=== PATIENT | male | born 1945 | race Asian ===

== ENCOUNTER → 2020-08-02 | Outpatient (CLI) | payer MEDICARE | END | disposition home or self-care (01) | LOC: RADPV 09:58 | PROVIDERS: ATTEND Physical Medicine & Rehabilitation Spinal Cord Injury Medicine | DX: M46.06 Spinal enthesopathy, lumbar region (principal); M47.26 Other spondylosis with radiculopathy, lumbar region; M17.11 Unilateral primary osteoarthritis, right knee; K80.20 Calculus of gallbladder without cholecystitis without obstruction; I70.8 Atherosclerosis of other arteries | CPT/HCPCS: 72100; 73562-TC ==

== ENCOUNTER 2024-03-13 20:16 | Inpatient (IN) | payer MEDICARE, OTHER ==
[~2024-03-13] VITALS: Ht 172.7 cm; Wt 69.7 kg
[2024-03-13 20:50] VITALS: PULSE 94; RESP 20; O2SAT 98
[2024-03-13 21:00] LABS: BASOPHILS % (AUTO) 0.6 % (0.0-2.0); EOSINOPHILS % (AUTO) 0.2 % (1.0-6.0); HEMOGLOBIN 14.4 g/dL (13.5-17.5); LYMPHOCYTES # (AUTO) 3.8 K/uL (1.0-4.8); LYMPHOCYTES % (AUTO) 29.5 % (22.0-44.0); MEAN CORPUSCULAR HEMOGLOBIN 29.1 pg (26.0-34.0); MEAN CORPUSCULAR HGB CONC 30.6 G/dL (31.0-37.0); MEAN CORPUSCULAR VOLUME 95 fL (80-100); MONOCYTES # (AUTO) 0.7 K/uL (0.1-1.0); NEUTROPHILS # (AUTO) 8.4 K/uL (1.8-7.7); NEUTROPHILS % (AUTO) 64.7 % (40.0-70.0); PLATELET COUNT (AUTO) 146 K/uL (150-450); RED BLOOD CELL COUNT(AUTO) 4.94 MIL/uL (4.50-5.90); RED CELL DISTRIBUTION WIDTH 18.6 % (11.5-14.5)
[2024-03-13 21:12] LABS: INR 1.1 (0.9-1.1); PROTHROMBIN TIME 11.4 SEC (9.4-11.6)
[2024-03-13 21:13] LABS: ANION GAP 8 mmol/L (8-16); CALCIUM, TOTAL 10.1 mg/dL (8.8-10.5); CARBON DIOXIDE 32 mmol/L (22-29); CHLORIDE 104 mmol/L (98-107); CREATININE 1.04 mg/dL (0.60-1.30); GLOMERULAR FILTR. RATE CALC > 60 mL/min (>60); GLUCOSE,RANDOM 264 mg/dL (70-110); POTASSIUM 4.4 mmol/L (3.5-5.1); SODIUM SERUM 144 mmol/L (136-145); UREA NITROGEN, BLOOD 23 mg/dL (7-18)
[2024-03-13 21:24] LABS: ABG BASE EXCESS -1.4 mmol/L (-2.0-3.0); ABG CARBOXYHEMOGLOBIN 0.8 % (0.0-1.5); ABG HCO3 21.1 mmol/L (22.0-26.0); ABG METHEMOGLOBIN 0.7 % (0.0-1.5); ABG OXYGEN CONTENT 22.6 mL/dL (15.0-23.0); ABG OXYGEN SATURATION 99.7 % (95.0-98.0); ABG OXYHEMOGLOBIN 98.2 % (94.0-100.0); ABG TOTAL HEMOGLOBIN 15.4 G/dL (12.0-18.0); PO2, ARTERIAL BG 496.7 mmHg (71.0-79.0); SOURCE, BLOOD GAS ARTERIAL; TEMPERATURE, FAHRENHEIT, BG 99.4 FAHREN (96.0-98.6)
[2024-03-13 21:26] LABS: LACTIC ACID 9.3 mmol/L (0.4-2.0); TROPONIN I-HIGH SENSITIVITY 80 ng/L (<76)
[2024-03-13 21:27] LABS: B-TYPE NATRIURETIC PEPTIDE 327 pg/mL (0-100)
[2024-03-13 21:28] LABS: ALANINE AMINOTRANSFERASE 113 U/L (12-78); ALBUMIN 2.1 g/dL (3.4-5.0); ALKALINE PHOSPHATASE 77 U/L (46-116); ASPARTATE AMINOTRANSFERASE 87 U/L (15-37); BILIRUBIN,TOTAL 0.4 mg/dL (0.1-1.0); TOTAL PROTEIN, SERUM 5.4 g/dL (6.4-8.2)
[2024-03-13] MEDS: 0.9% SODIUM CHLORIDE 10 ML SYRINGE IVP PRN (21:30)
[2024-03-13] MEDS: SODIUM CHLORIDE 0.9% 1,800 ML IV ONE (21:30)
[2024-03-13 21:33] LABS: ABG PH 7.104 (7.35-7.450)
[2024-03-13 21:34] LABS: ABG A-A DIFF O2 123.1 mmHg (10-20.0); ABG PCO2 92 mmHg (35-45); ALLEN TEST, BLOOD GAS Positive; O2 DEVICE,BLOOD GAS VENT (ROOM AIR); PEEP,BG 5 cm H2O; SITE, BLOOD GAS LFT RADIAL; VT, ABG 400 ml
[2024-03-13] MEDS: NOREPINEPHRINE 8 MG/0.9 % NACL 250 ML IV PRN (21:39)
[2024-03-13] MEDS: PIPERACILLIN/TAZO 3.375 GM/D5W 50 ML IV SCH (21:43)
[2024-03-13] MEDS: PHENYLEPHRINE 200 MG/D5%-WATER 250 ML IV PRN (22:00)
[2024-03-13] MEDS ORDERED: 0.9% SODIUM CHLORIDE 5 ML NEB SOLUTION NEB ONE (22:22)
[2024-03-13] MEDS: ALBUTEROL SULFATE 2.5 MG/0.5 ML NEB SOLUTION NEB ONE (22:33)
[2024-03-13 22:35] VITALS: PULSE 56; RESP 28; O2SAT 98
[2024-03-13 22:40] VITALS: PULSE 59; RESP 28; O2SAT 100
[2024-03-13] MEDS: MethylPREDNISolone SOD SUCC 125 MG/2 ML VIAL IVP ONE (22:42)
[2024-03-13 22:48] LABS: COVID AG,FIA SOURCE NASAL SWAB
[2024-03-13 22:50] VITALS: PULSE 51; RESP 28; O2SAT 100
[2024-03-13] MEDS ORDERED: METO-408 PO (22:51)
[2024-03-13] MEDS ORDERED: FLUT16SP NASAL (22:51)
[2024-03-13] MEDS ORDERED: IPRA3AMP24 NEB (22:51)
[2024-03-13] MEDS ORDERED: APIX5TAB PO (22:51)
[2024-03-13] MEDS ORDERED: VIBE75TA PO (22:51)
[2024-03-13] MEDS ORDERED: CRAN250C PO (22:51)
[2024-03-13] MEDS ORDERED: PANT-31 PO (22:51)
[2024-03-13] MEDS ORDERED: NYST15PO3 TP (22:51)
[2024-03-13] MEDS ORDERED: FLUT1BLS3 IH (22:51)
[2024-03-13] MEDS ORDERED: HYDR28.35 TP (22:51)
[2024-03-13] MEDS ORDERED: METF-910 PO (22:51)
[2024-03-13] MEDS ORDERED: SILD20TA PO (22:51)
[2024-03-13] MEDS ORDERED: PRED-729 PO (22:51)
[2024-03-13 23:09] LABS: SARS-COV2 (COVID) ANTIGEN,FIA Negative (Negative)
[2024-03-13 23:11] LABS: INFLUENZA TYPE A NEGATIVE FOR TYPE A (NEGATIVE); INFLUENZA TYPE B NEGATIVE FOR TYPE B (NEGATIVE)
[2024-03-13] MEDS ORDERED: PIPERACILLIN/TAZO 3.375 GM/D5W 50 ML IV SCH (23:15)
[2024-03-13 23:36] LABS: ABG CARBOXYHEMOGLOBIN 0.8 % (0.0-1.5); ABG HCO3 25.7 mmol/L (22.0-26.0); ABG METHEMOGLOBIN 0.6 % (0.0-1.5); ABG OXYGEN CONTENT 22.8 mL/dL (15.0-23.0); ABG OXYGEN SATURATION 98.8 % (95.0-98.0); ABG OXYHEMOGLOBIN 97.4 % (94.0-100.0); ABG PH 7.249 (7.35-7.450); ABG TOTAL HEMOGLOBIN 16.5 G/dL (12.0-18.0); SOURCE, BLOOD GAS ARTERIAL; TEMPERATURE, FAHRENHEIT, BG 98.5 FAHREN (96.0-98.6)
[2024-03-13 23:39] LABS: ABG A-A DIFF O2 216.7 mmHg (10-20.0); ABG PCO2 73 mmHg (35-45); ALLEN TEST, BLOOD GAS Positive; O2 DEVICE,BLOOD GAS VENT (ROOM AIR); PEEP,BG 5 cm H2O; SITE, BLOOD GAS LFT RADIAL; VT, ABG 450 ml
[2024-03-13] MEDS: PROPOFOL 1000 MG/ISO-OSM 100 ML IV PRN (23:39)
[2024-03-14] VITALS (14 sets, daily range): BP systolic 105–188; BP diastolic 52–90; PULSE 43–81; RESP 28; TEMP 87.7–100.1; O2SAT 94–100
[2024-03-14 00:34] LABS: APPEARANCE,URINE HAZY (CLEAR); BILIRUBIN,URINE NEGATIVE (NEGATIVE); COLOR,URINE YELLOW (YELLOW); GLUCOSE, URINE (UA) 70-100 mg/dL (NEGATIVE); KETONES,URINE NEGATIVE (NEGATIVE); LEUKOCYTE ESTERASE ,URINE NEGATIVE (NEGATIVE); NITRATE,URINE NEGATIVE (NEGATIVE); OCCULT BLOOD,URINE SMALL (NEGATIVE); PH,URINE 6.5 (5.0-8.0); PROTEIN,URINE 300-600,SEE CONFIRM mg/dL (NEGATIVE); UROBILINOGEN,URINE <=1.0 mg/dL (<=1.0)
[2024-03-14 01:15] LABS: SULFOSALICYLIC ACID,URINE 3+ (Negative)
[2024-03-14 01:16] LABS: AMORPHOUS SEDIMENT,UR Moderate /LPF (None Seen); BACTERIA,URINE Few /HPF (None Seen); SQUAMOUS EPITHELIAL CELL,UR None Seen /LPF (None Seen)
[2024-03-14 04:01] LABS: GLUCOMETER DEV NAME(LOC) ICU.S6; GLUCOSE,POINT OF CARE 203 MG/DL (70-110)
[2024-03-14 04:50] LABS: BASOPHILS % (AUTO) 0.3 % (0.0-2.0); EOSINOPHILS % (AUTO) 0 % (1.0-6.0); HEMATOCRIT 47.8 % (41-53); HEMOGLOBIN 14.8 g/dL (13.5-17.5); LYMPHOCYTES # (AUTO) 0.8 K/uL (1.0-4.8); LYMPHOCYTES % (AUTO) 4.1 % (22.0-44.0); MEAN CORPUSCULAR HEMOGLOBIN 28.8 pg (26.0-34.0); MEAN CORPUSCULAR HGB CONC 30.9 G/dL (31.0-37.0); MEAN CORPUSCULAR VOLUME 93 fL (80-100); MONOCYTES # (AUTO) 0.9 K/uL (0.1-1.0); MONOCYTES % (AUTO) 4.8 % (2.0-9.0); NEUTROPHILS # (AUTO) 17.3 K/uL (1.8-7.7); PLATELET COUNT (AUTO) 173 K/uL (150-450); RED BLOOD CELL COUNT(AUTO) 5.13 MIL/uL (4.50-5.90)
[2024-03-14 04:51] LABS: NEUTROPHILS % (AUTO) 90.8 % (40.0-70.0)
[2024-03-14 05:01] LABS: CALCIUM, TOTAL 9.4 mg/dL (8.8-10.5); CREATININE 1.28 mg/dL (0.60-1.30); POTASSIUM 5.7 mmol/L (3.5-5.1)
[2024-03-14 05:06] LABS: ALBUMIN 2.5 g/dL (3.4-5.0); BILIRUBIN,TOTAL 0.9 mg/dL (0.1-1.0); MAGNESIUM 2.2 mg/dL (1.80-2.40); PHOSPHORUS 6.6 mg/dL (2.5-4.9); TOTAL PROTEIN, SERUM 6.2 g/dL (6.4-8.2)
[2024-03-14 05:08] LABS: TROPONIN I-HIGH SENSITIVITY 754 ng/L (<76)
[2024-03-14] MEDS ORDERED: SODIUM CHLORIDE 0.9% 250 ML IV ONE (05:33)
[2024-03-14] MEDS ORDERED: MIDAZOLAM HCL 100 MG in SODIUM CHLORIDE 0.9% 180 ML IV PRN (06:30)
[2024-03-14] MEDS: FentaNYL CIT 1000MCG/0.9% NACL 100 ML IV PRN (06:35)
[2024-03-14] MEDS ORDERED: DOPamine 400MG/D5W[STANDARD] 250 ML IV ONE (08:13)
[2024-03-14] MEDS: DOPamine 400MG/D5W[STANDARD] 250 ML IV PRN (08:15)
[2024-03-14 08:32] LABS: ABG CARBOXYHEMOGLOBIN 0.8 % (0.0-1.5); ABG HCO3 26.4 mmol/L (22.0-26.0); ABG METHEMOGLOBIN 0.1 % (0.0-1.5); ABG OXYGEN SATURATION 99.9 % (95.0-98.0); ABG PCO2 56 mmHg (35-45); ABG PH 7.342 (7.35-7.450); ABG TOTAL HEMOGLOBIN 16.8 G/dL (12.0-18.0); ALLEN TEST, BLOOD GAS Positive; O2 DEVICE,BLOOD GAS VENTILATOR (ROOM AIR); PEEP,BG 5 cm H2O; PO2, ARTERIAL BG 287.8 mmHg (71.0-79.0); SITE, BLOOD GAS LFT RADIAL; SOURCE, BLOOD GAS ARTERIAL; TEMPERATURE, FAHRENHEIT, BG 96.1 FAHREN (96.0-98.6); VT, ABG 450 ml
[2024-03-14] MEDS ORDERED: HEPARIN SODIUM,PORCINE 5,000 UNITS/ML VIAL IVP PRN ×2 (09:45)
[2024-03-14] MEDS: HEPARIN SODIUM,PORCINE 1,000 UNITS/ML VIAL IVP ONE ×2 (11:28→11:30)
[2024-03-14 11:32] LABS: BASOPHILS % (AUTO) 0.6 % (0.0-2.0); EOSINOPHILS % (AUTO) 0 % (1.0-6.0); HEMATOCRIT 49.8 % (41-53); HEMOGLOBIN 15.8 g/dL (13.5-17.5); LYMPHOCYTES # (AUTO) 0.4 K/uL (1.0-4.8); LYMPHOCYTES % (AUTO) 2.3 % (22.0-44.0); MEAN CORPUSCULAR HEMOGLOBIN 29.2 pg (26.0-34.0); MEAN CORPUSCULAR HGB CONC 31.8 G/dL (31.0-37.0); MEAN CORPUSCULAR VOLUME 92 fL (80-100); MONOCYTES # (AUTO) 0.8 K/uL (0.1-1.0); MONOCYTES % (AUTO) 4.5 % (2.0-9.0); NEUTROPHILS # (AUTO) 16.9 K/uL (1.8-7.7); PLATELET COUNT (AUTO) 147 K/uL (150-450); RED BLOOD CELL COUNT(AUTO) 5.42 MIL/uL (4.50-5.90); RED CELL DISTRIBUTION WIDTH 17.6 % (11.5-14.5); WHITE BLOOD COUNT (AUTO) 18.3 K/uL (4.5-11.0)
[2024-03-14 11:35] LABS: NEUTROPHILS % (AUTO) 92.6 % (40.0-70.0)
[2024-03-14 11:46] LABS: PROTHROMBIN TIME 10.9 SEC (9.4-11.6)
[2024-03-14 13:07] LABS: CALCIUM, TOTAL 9.4 mg/dL (8.8-10.5); CREATININE 1.29 mg/dL (0.60-1.30); POTASSIUM 5.1 mmol/L (3.5-5.1)
[2024-03-14] MEDS: SODIUM CHLORIDE 0.9% IV PRN (13:11)
[2024-03-14] MEDS: ISOPROTERENOL HCL IV PRN (13:11)
[2024-03-14] MEDS: HEPARIN SODIUM,PORCINE 5,000 UNITS/ML VIAL IVP ONE (13:35)
[2024-03-14] MEDS: HEPARIN SODIUM 25000 UNITS/D5W 250 ML IV PRN (13:38)
[2024-03-14 15:42] LABS: ABG BASE EXCESS 4.5 mmol/L (-2.0-3.0); ABG CARBOXYHEMOGLOBIN 0.9 % (0.0-1.5); ABG HCO3 27.9 mmol/L (22.0-26.0); ABG METHEMOGLOBIN 0.5 % (0.0-1.5); ABG OXYGEN CONTENT 21.9 mL/dL (15.0-23.0); ABG OXYHEMOGLOBIN 97.6 % (94.0-100.0); ABG PCO2 38 mmHg (35-45); ABG PH 7.483 (7.35-7.450); ABG TOTAL HEMOGLOBIN 15.9 G/dL (12.0-18.0); O2 DEVICE,BLOOD GAS VENTILATOR (ROOM AIR); SITE, BLOOD GAS ARTERIAL LINE; SOURCE, BLOOD GAS ARTERIAL; TEMPERATURE, FAHRENHEIT, BG 92.1 FAHREN (96.0-98.6)
[2024-03-14 15:43] LABS: PEEP,BG 5 cm H2O; VT, ABG 450 ml
[2024-03-14 17:52] LABS: APPEARANCE,URINE HAZY (CLEAR); BILIRUBIN,URINE NEGATIVE (NEGATIVE); COLOR,URINE LIGHT YELLOW (YELLOW); GLUCOSE, URINE (UA) >=1000 mg/dL (NEGATIVE); KETONES,URINE NEGATIVE (NEGATIVE); LEUKOCYTE ESTERASE ,URINE NEGATIVE (NEGATIVE); NITRATE,URINE NEGATIVE (NEGATIVE); OCCULT BLOOD,URINE NEGATIVE (NEGATIVE); PROTEIN,URINE TRACE mg/dL (NEGATIVE); SPECIFIC GRAVITIY, URINE 1.023 (1.003-1.030); UROBILINOGEN,URINE <=1.0 mg/dL (<=1.0)
[2024-03-14 17:58] LABS: CALCIUM, TOTAL 8.9 mg/dL (8.8-10.5); CREATININE 1.36 mg/dL (0.60-1.30); MAGNESIUM 1.9 mg/dL (1.80-2.40); PHOSPHORUS 4.6 mg/dL (2.5-4.9); POTASSIUM 3.8 mmol/L (3.5-5.1)
[2024-03-14 18:06] LABS: CREATININE,URINE RANDOM 52.2 mg/dL (30.0-125.0); UREA NITROGEN,URINE RANDOM 760 mg/dL (350-1000)
[2024-03-14 18:19] LABS: SODIUM,URINE RANDOM 59 mmol/l (20-110)
[2024-03-14 18:44] LABS: RBC,URINE None Seen /HPF (0-2)
[2024-03-14 18:45] LABS: BACTERIA,URINE None Seen /HPF (None Seen); URIC ACID CRYSTALS,URINE Moderate /LPF (None Seen); WBC,URINE 0-2 /HPF (0-5)
[2024-03-14] MEDS: PANTOPRAZOLE SODIUM 40 MG/VIAL IVP SCH (20:40)
[2024-03-14 20:48] LABS: ABG BASE EXCESS 1.6 mmol/L (-2.0-3.0); ABG CARBOXYHEMOGLOBIN 0.7 % (0.0-1.5); ABG METHEMOGLOBIN 0.2 % (0.0-1.5); ABG OXYGEN CONTENT 21.4 mL/dL (15.0-23.0); ABG OXYGEN SATURATION 95.5 % (95.0-98.0); ABG OXYHEMOGLOBIN 94.6 % (94.0-100.0); ABG PCO2 58 mmHg (35-45); ABG PH 7.295 (7.35-7.450); ABG TOTAL HEMOGLOBIN 16.1 G/dL (12.0-18.0); SOURCE, BLOOD GAS ARTERIAL; TEMPERATURE, FAHRENHEIT, BG 92.3 FAHREN (96.0-98.6)
[2024-03-14 20:49] LABS: O2 DEVICE,BLOOD GAS VENTILATOR (ROOM AIR); PEEP,BG 5 cm H2O; SITE, BLOOD GAS ARTERIAL LINE; VT, ABG 450 ml
[2024-03-14] MEDS ORDERED: DEXTROSE 50%-WATER 25 GM/50 ML SYRINGE IVP PRN (23:45)
[2024-03-14 23:46] LABS: GLUCOMETER DEV NAME(LOC) ICU.S6; GLUCOSE,POINT OF CARE 205 MG/DL (70-110)
[2024-03-14 23:50] LABS: CALCIUM, TOTAL 8.7 mg/dL (8.8-10.5); CREATININE 1.19 mg/dL (0.60-1.30); MAGNESIUM 1.8 mg/dL (1.80-2.40); PHOSPHORUS 5.4 mg/dL (2.5-4.9); POTASSIUM 3.9 mmol/L (3.5-5.1)
[2024-03-15] VITALS (16 sets, daily range): BP systolic 108–126; BP diastolic 47–81; PULSE 71–106; RESP 19–28; TEMP 90.5–100.4; O2SAT 89–100
[2024-03-15] MEDS: INSULIN LISPRO 100 UNITS/ML SQ PRN (00:30)
[2024-03-15 05:26] LABS: GLUCOMETER DEV NAME(LOC) ICUN.5; GLUCOSE,POINT OF CARE 183 MG/DL (70-110)
[2024-03-15 06:13] LABS: ANION GAP 5 mmol/L (8-16); CALCIUM, TOTAL 8.7 mg/dL (8.8-10.5); CARBON DIOXIDE 32 mmol/L (22-29); CHLORIDE 101 mmol/L (98-107); CREATININE 0.99 mg/dL (0.60-1.30); GLOMERULAR FILTR. RATE CALC > 60 mL/min (>60); GLUCOSE,RANDOM 177 mg/dL (70-110); PHOSPHORUS 3.8 mg/dL (2.5-4.9); POTASSIUM 3.9 mmol/L (3.5-5.1); SODIUM SERUM 138 mmol/L (136-145); UREA NITROGEN, BLOOD 35 mg/dL (7-18)
[2024-03-15] MEDS ORDERED: ZOLPIDEM TARTRATE 5 MG TABLET PO PRN (06:15)
[2024-03-15] MEDS ORDERED: HYDROCODONE/ACETAMINOPHEN 5-325 MG TABLET PO PRN (06:15)
[2024-03-15] MEDS ORDERED: ALBUTEROL SULFATE 2.5 MG/0.5 ML NEB SOLUTION NEB PRN (06:15)
[2024-03-15] MEDS ORDERED: IPRATROPIUM BROMIDE 0.5 MG/2.5 ML NEB SOLUTION NEB PRN (06:15)
[2024-03-15] MEDS ORDERED: BISACODYL 10 MG RECTAL RECTAL SUPPOSITORY PR PRN (06:15)
[2024-03-15] MEDS ORDERED: MAGNESIUM HYDROXIDE SUSPENSION 30 ML UDCUP PO PRN (06:15)
[2024-03-15] MEDS ORDERED: ONDANSETRON HCL 4 MG/2 ML VIAL IVP PRN (06:15)
[2024-03-15] MEDS ORDERED: MORPHINE SULFATE 2 MG/ML SYRINGE IVP PRN (06:15)
[2024-03-15] MEDS ORDERED: DEXTROSE 50%-WATER 25 GM/50 ML SYRINGE IVP PRN (06:45)
[2024-03-15] MEDS: VANCOMYCIN 1.25 GM/WATER(PEG) 250 ML IV ONE (08:00)
[2024-03-15] MEDS: MethylPREDNISolone SOD SUCC 125 MG/2 ML VIAL IVP SCH (08:00)
[2024-03-15 08:11] LABS: ANION GAP 5 mmol/L (8-16); CALCIUM, TOTAL 8.6 mg/dL (8.8-10.5); CARBON DIOXIDE 32 mmol/L (22-29); CHLORIDE 100 mmol/L (98-107); CREATININE 1.03 mg/dL (0.60-1.30); GLOMERULAR FILTR. RATE CALC > 60 mL/min (>60); GLUCOSE,RANDOM 160 mg/dL (70-110); POTASSIUM 3.9 mmol/L (3.5-5.1); SODIUM SERUM 137 mmol/L (136-145); UREA NITROGEN, BLOOD 36 mg/dL (7-18)
[2024-03-15 08:13] LABS: BASOPHILS % (AUTO) 0.1 % (0.0-2.0); EOSINOPHILS % (AUTO) 0 % (1.0-6.0); HEMATOCRIT 43.2 % (41-53); HEMOGLOBIN 13.9 g/dL (13.5-17.5); LYMPHOCYTES # (AUTO) 0.5 K/uL (1.0-4.8); LYMPHOCYTES % (AUTO) 4.4 % (22.0-44.0); MEAN CORPUSCULAR HGB CONC 32.2 G/dL (31.0-37.0); MEAN CORPUSCULAR VOLUME 90 fL (80-100); MONOCYTES # (AUTO) 0.5 K/uL (0.1-1.0); MONOCYTES % (AUTO) 4.5 % (2.0-9.0); NEUTROPHILS # (AUTO) 10.3 K/uL (1.8-7.7); PLATELET COUNT (AUTO) 145 K/uL (150-450); RED CELL DISTRIBUTION WIDTH 17.1 % (11.5-14.5); WHITE BLOOD COUNT (AUTO) 11.3 K/uL (4.5-11.0)
[2024-03-15 08:14] LABS: AMYLASE 468 U/L (25-115); CHOL/HDL RATIO 2.1 (4.2-7.3); LIPASE 59 U/L (16-77)
[2024-03-15 08:16] LABS: ALANINE AMINOTRANSFERASE 154 U/L (12-78); ALBUMIN 2.2 g/dL (3.4-5.0); ALKALINE PHOSPHATASE 78 U/L (46-116); ASPARTATE AMINOTRANSFERASE 51 U/L (15-37); TOTAL PROTEIN, SERUM 5.7 g/dL (6.4-8.2)
[2024-03-15 08:59] LABS: PHOSPHORUS 3.6 mg/dL (2.5-4.9)
[2024-03-15] MEDS ORDERED: PANTOPRAZOLE SODIUM 40 MG DR TABLET PO SCH (09:00)
[2024-03-15 10:05] LABS: ABG BASE EXCESS 5.1 mmol/L (-2.0-3.0); ABG CARBOXYHEMOGLOBIN 0.6 % (0.0-1.5); ABG HCO3 28.9 mmol/L (22.0-26.0); ABG METHEMOGLOBIN 0.1 % (0.0-1.5); ABG OXYGEN CONTENT 19.7 mL/dL (15.0-23.0); ABG OXYGEN SATURATION 98.6 % (95.0-98.0); ABG OXYHEMOGLOBIN 97.9 % (94.0-100.0); ABG PCO2 40 mmHg (35-45); ABG PH 7.473 (7.35-7.450); ABG TOTAL HEMOGLOBIN 14.2 G/dL (12.0-18.0); O2 DEVICE,BLOOD GAS VENTILATOR (ROOM AIR); PEEP,BG 5 cm H2O; PO2, ARTERIAL BG 119.1 mmHg (71.0-79.0); SITE, BLOOD GAS ARTERIAL LINE; SOURCE, BLOOD GAS ARTERIAL; TEMPERATURE, FAHRENHEIT, BG 99.7 FAHREN (96.0-98.6); VT, ABG 450 ml
[2024-03-15] MEDS: ACETAMINOPHEN 325 MG TABLET PO PRN (10:28)
[2024-03-15 11:49] LABS: ANION GAP 3 mmol/L (8-16); CALCIUM, TOTAL 8.3 mg/dL (8.8-10.5); CARBON DIOXIDE 31 mmol/L (22-29); CHLORIDE 102 mmol/L (98-107); CREATININE 1.12 mg/dL (0.60-1.30); GLOMERULAR FILTR. RATE CALC > 60 mL/min (>60); GLUCOSE,RANDOM 132 mg/dL (70-110); PHOSPHORUS 4.1 mg/dL (2.5-4.9); POTASSIUM 4.7 mmol/L (3.5-5.1); SODIUM SERUM 136 mmol/L (136-145); UREA NITROGEN, BLOOD 37 mg/dL (7-18)
[2024-03-15 14:37] LABS: BASOPHILS % (AUTO) 0.3 % (0.0-2.0); EOSINOPHILS % (AUTO) 0.1 % (1.0-6.0); HEMATOCRIT 41.2 % (41-53); HEMOGLOBIN 13.2 g/dL (13.5-17.5); LYMPHOCYTES # (AUTO) 0.6 K/uL (1.0-4.8); LYMPHOCYTES % (AUTO) 5.3 % (22.0-44.0); MEAN CORPUSCULAR HEMOGLOBIN 28.6 pg (26.0-34.0); MEAN CORPUSCULAR VOLUME 89 fL (80-100); MONOCYTES # (AUTO) 0.6 K/uL (0.1-1.0); MONOCYTES % (AUTO) 4.8 % (2.0-9.0); NEUTROPHILS # (AUTO) 10.4 K/uL (1.8-7.7); PLATELET COUNT (AUTO) 141 K/uL (150-450); RED BLOOD CELL COUNT(AUTO) 4.62 MIL/uL (4.50-5.90); RED CELL DISTRIBUTION WIDTH 17.5 % (11.5-14.5); WHITE BLOOD COUNT (AUTO) 11.6 K/uL (4.5-11.0)
[2024-03-15 14:39] LABS: NEUTROPHILS % (AUTO) 89.5 % (40.0-70.0)
[2024-03-15 14:53] LABS: TROPONIN I-HIGH SENSITIVITY 318 ng/L (<76)
[2024-03-15] MEDS ORDERED: ROSU10TA72 PO (16:58)
[2024-03-15] MEDS ORDERED: ALBU18HF12 IH (16:58)
[2024-03-15] MEDS ORDERED: KETO120S13 TP (16:58)
[2024-03-15 17:25] LABS: GLUCOSE,POINT OF CARE 112 MG/DL (70-110)
[2024-03-15 17:26] LABS: GLUCOMETER DEV NAME(LOC) ICUN.5; GLUCOSE,POINT OF CARE 146 MG/DL (70-110)
[2024-03-15 17:26] LABS: GLUCOMETER DEV NAME(LOC) ICUN.5
[2024-03-15] MEDS: NOREPINEPHRINE 8 MG/0.9 % NACL 250 ML IV PRN (17:28)
[2024-03-15] MEDS: VANCOMYCIN 750 MG/WATER(PEG) 150 ML IV SCH (21:10)
[2024-03-15 21:40] LABS: GLUCOMETER DEV NAME(LOC) ICUN.5; GLUCOSE,POINT OF CARE 145 MG/DL (70-110)
[2024-03-16] VITALS (14 sets, daily range): BP systolic 105–126; BP diastolic 47–85; PULSE 67–94; RESP 19–28; TEMP 99.1–100; O2SAT 95–100
[2024-03-16 06:23] LABS: EOSINOPHILS % (AUTO) 0 % (1.0-6.0); HEMATOCRIT 35.7 % (41-53); HEMOGLOBIN 11.5 g/dL (13.5-17.5); LYMPHOCYTES # (AUTO) 0.9 K/uL (1.0-4.8); LYMPHOCYTES % (AUTO) 7.2 % (22.0-44.0); MEAN CORPUSCULAR HEMOGLOBIN 28.9 pg (26.0-34.0); MEAN CORPUSCULAR HGB CONC 32.2 G/dL (31.0-37.0); MEAN CORPUSCULAR VOLUME 90 fL (80-100); MONOCYTES # (AUTO) 0.4 K/uL (0.1-1.0); MONOCYTES % (AUTO) 3.6 % (2.0-9.0); NEUTROPHILS # (AUTO) 10.9 K/uL (1.8-7.7); PLATELET COUNT (AUTO) 129 K/uL (150-450); RED BLOOD CELL COUNT(AUTO) 3.98 MIL/uL (4.50-5.90); RED CELL DISTRIBUTION WIDTH 17.8 % (11.5-14.5); WHITE BLOOD COUNT (AUTO) 12.2 K/uL (4.5-11.0)
[2024-03-16 06:24] LABS: NEUTROPHILS % (AUTO) 89.2 % (40.0-70.0)
[2024-03-16 06:28] LABS: CALCIUM, TOTAL 8.7 mg/dL (8.8-10.5); CREATININE 1.76 mg/dL (0.60-1.30); MAGNESIUM 1.9 mg/dL (1.80-2.40); PHOSPHORUS 5.5 mg/dL (2.5-4.9); POTASSIUM 4.1 mmol/L (3.5-5.1)
[2024-03-16 06:33] LABS: TROPONIN I-HIGH SENSITIVITY 198 ng/L (<76)
[2024-03-16 07:26] LABS: GLUCOMETER DEV NAME(LOC) ICU.S6; GLUCOSE,POINT OF CARE 187 MG/DL (70-110)
[2024-03-16] MEDS: INSULIN LISPRO 100 UNITS/ML SQ PRN (07:28)
[2024-03-16] MEDS: HEPARIN SODIUM,PORCINE 5,000 UNITS/ML VIAL SQ SCH (09:15)
[2024-03-16 12:01] LABS: GLUCOMETER DEV NAME(LOC) ICUN.5; GLUCOSE,POINT OF CARE 189 MG/DL (70-110)
[2024-03-16 17:30] LABS: GLUCOMETER DEV NAME(LOC) ICUN.5; GLUCOSE,POINT OF CARE 179 MG/DL (70-110)
[2024-03-16] MEDS ORDERED: BUDESONIDE 0.5 MG/2 ML NEB SOLUTION NEB SCH (21:00)
[2024-03-17] VITALS (10 sets, daily range): BP systolic 88–134; BP diastolic 52–80; PULSE 58–103; RESP 28; TEMP 98.2–99; O2SAT 98–100
[2024-03-17 00:07] LABS: GLUCOMETER DEV NAME(LOC) ICUN.5; GLUCOSE,POINT OF CARE 175 MG/DL (70-110)
[2024-03-17 06:18] LABS: CALCIUM, TOTAL 8.7 mg/dL (8.8-10.5); CREATININE 1.29 mg/dL (0.60-1.30); MAGNESIUM 2.1 mg/dL (1.80-2.40); PHOSPHORUS 3.5 mg/dL (2.5-4.9); POTASSIUM 3.2 mmol/L (3.5-5.1)
[2024-03-17 06:40] LABS: BASOPHILS % (AUTO) 0.2 % (0.0-2.0); EOSINOPHILS % (AUTO) 0 % (1.0-6.0); HEMOGLOBIN 10.2 g/dL (13.5-17.5); LYMPHOCYTES # (AUTO) 0.5 K/uL (1.0-4.8); LYMPHOCYTES % (AUTO) 4.6 % (22.0-44.0); MEAN CORPUSCULAR HEMOGLOBIN 29.3 pg (26.0-34.0); MEAN CORPUSCULAR VOLUME 89 fL (80-100); MONOCYTES # (AUTO) 0.5 K/uL (0.1-1.0); MONOCYTES % (AUTO) 4.3 % (2.0-9.0); NEUTROPHILS # (AUTO) 10.2 K/uL (1.8-7.7); PLATELET COUNT (AUTO) 116 K/uL (150-450); RED BLOOD CELL COUNT(AUTO) 3.48 MIL/uL (4.50-5.90); RED CELL DISTRIBUTION WIDTH 17.5 % (11.5-14.5); WHITE BLOOD COUNT (AUTO) 11.2 K/uL (4.5-11.0)
[2024-03-17 06:41] LABS: NEUTROPHILS % (AUTO) 90.9 % (40.0-70.0)
[2024-03-17 07:05] LABS: GLUCOMETER DEV NAME(LOC) ICUN.5; GLUCOSE,POINT OF CARE 178 MG/DL (70-110)
[2024-03-17] MEDS: VANCOMYCIN 1GM/WATER(PEG/NADA) 200 ML IV SCH (08:53)
[2024-03-17] MEDS: POTASSIUM CHL 10 MEQ/WATER 50 ML IV ONE (09:01)
[2024-03-17] MEDS ORDERED: DEXMEDETOMIDINE HCL 400 MCG in SODIUM CHLORIDE 0.9% 96 ML IV PRN (10:45)
[2024-03-17 20:00] LABS: GLUCOMETER DEV NAME(LOC) ICUN.5; GLUCOSE,POINT OF CARE 184 MG/DL (70-110)
== END 2024-03-17 13:30 | disposition short-term general hospital (02) | DRG 871 ==
LOC: EMS 20:38 → EDH 23:11 → ICU 03-14 02:30
PROVIDERS: ADMIT Hospitalist; ATTEND Hospitalist
PROC: 02H633Z Insertion of Infusion Device into Right Atrium, Percutaneous Approach (ICD-10-PCS; principal; 2024-03-13)
PROC: 5A1945Z Respiratory Ventilation, 24-96 Consecutive Hours (ICD-10-PCS; 2024-03-13)
PROC: 0BH17EZ Insertion of Endotracheal Airway into Trachea, Via Natural or Artificial Opening (ICD-10-PCS; 2024-03-13)
DX: A41.9 Sepsis, unspecified organism (principal); I21.4 Non-ST elevation (NSTEMI) myocardial infarction; J96.21 Acute and chronic respiratory failure with hypoxia; I46.9 Cardiac arrest, cause unspecified; J69.0 Pneumonitis due to inhalation of food and vomit; N17.0 Acute kidney failure with tubular necrosis; I50.23 Acute on chronic systolic (congestive) heart failure; J96.22 Acute and chronic respiratory failure with hypercapnia; R57.9 Shock, unspecified; Z99.11 Dependence on respirator [ventilator] status; J44.1 Chronic obstructive pulmonary disease with (acute) exacerbation; I13.0 Hypertensive heart and chronic kidney disease with heart failure and stage 1 through stage 4 chronic kidney disease, or unspecified chronic kidney disease; J44.0 Chronic obstructive pulmonary disease with (acute) lower respiratory infection; R79.89 Other specified abnormal findings of blood chemistry; Z20.822 Contact with and (suspected) exposure to COVID-19; N18.9 Chronic kidney disease, unspecified; I27.20 Pulmonary hypertension, unspecified; I48.91 Unspecified atrial fibrillation; E11.22 Type 2 diabetes mellitus with diabetic chronic kidney disease; R91.1 Solitary pulmonary nodule; E78.5 Hyperlipidemia, unspecified; K21.9 Gastro-esophageal reflux disease without esophagitis; I45.10 Unspecified right bundle-branch block; N40.0 Benign prostatic hyperplasia without lower urinary tract symptoms; K81.9 Cholecystitis, unspecified; D64.9 Anemia, unspecified; D69.6 Thrombocytopenia, unspecified; E87.6 Hypokalemia; Z79.01 Long term (current) use of anticoagulants; Z79.84 Long term (current) use of oral hypoglycemic drugs; Z82.49 Family history of ischemic heart disease and other diseases of the circulatory system; Z87.891 Personal history of nicotine dependence
CPT/HCPCS: 36600; 51702; 70450; 71045; 71250; 72192; 74150; 76700; 80048; 80053; 80061; 80202; 81001; 81002; 82150; 82570; 82805; 82962; 83605; 83615; 83690; 83735; 83880; 84100; 84145; 84300; 84484; 84540; 85025; 85610; 85730; 87040; 87081; 87481; 87804; 92950; 93005; 93306; 94002; 94003; 94640; 99285; C9113; G0238; J1265; J1644; J2250; J2370; J2543; J2704; J2919; J3480; J3490; J7050; Q9967; 36415-L1; 36415-TC; 82803-TC; J7613